=== PATIENT | male | born 1990 | race African-American/Black ===

== ENCOUNTER 2022-04-22 10:45 | Emergency (ER) | payer OTHER ==
[2022-04-22 11:05] VITALS: BP 130/76; PULSE 68; RESP 15; TEMP 98.1; BMI 31.1
[2022-04-22] MEDS ORDERED: LOPERAMIDE HCL 2 MG CAPSULE PO ONE (11:37)
[2022-04-22] MEDS ORDERED: LACTATED RINGERS SOLUTION 1,000 ML/1,000 ML INFUS.BAG IV SCH (12:00)
[2022-04-22] MEDS ORDERED: LOPERAMIDE HCL 2 MG CAPSULE ONE (12:14)
[2022-04-22 12:28] LABS: HEMATOCRIT 45.7 % (35.4-49); MCH 29.6 pg (25.7-33.7); MCHC 35.1 g/dl (32.0-35.9); MEAN CELL VOLUME 84.5 fl (80-96); MEAN PLT VOLUME 9.3 fl (7.5-11.1); PLATELET COUNT 129.5 10^3/uL (134-434); RBC 5.41 10^6/uL (4.00-5.60); RDW 13.9 % (11.9-15.9); WHITE BLOOD COUNT 4.2 10^3/uL (4.0-10.8)
[2022-04-22 12:34] LABS: PLATELET ESTIMATE ADEQUATE
[2022-04-22 12:37] LABS: ALBUMIN 4.4 g/dl (3.4-5.0); BILIRUBIN,TOTAL 0.9 mg/dl (0.2-1); CALCIUM 9.1 mg/dl (8.5-10); CREATININE 1.2 mg/dl (0.55-1.3); TOT PROT 7.9 g/dl (6.4-8.2)
== END 2022-04-22 13:55 | disposition home or self-care (01) ==
LOC: FER 10:45
DX: R19.7 Diarrhea, unspecified (principal); R10.13 Epigastric pain
CPT/HCPCS: 0241U-QW; 36415; 80053; 83690; 85027; 87045; 87046; 99283-25